=== PATIENT | female | born 1945 | race Caucasian/White ===

== ENCOUNTER 2017-01-30 14:39 | Inpatient (IN) | payer MEDICARE, MEDICAID ==
[~2017-01-30] VITALS: Ht 162.5 cm; Wt 117.9 kg
--- NOTE | ~2017-01-30 | PR ---
[place], [place] PROGRESS NOTE [facility] [id number] UNIT #: [id number] ROOM: 310 DOCTOR: Tahmina SCHWAB,GRAYSON BIRTHDATE: [birth year] DOS: 02/05/2017 PSYCHIATRIC PROGRESS NOTE. SUBJECTIVE: The patient seen and I spoke with the staff. Per staff, the patient is doing better, cooperative, but still has periods of confusion and combativeness. She is taking her medication regularly and easily redirectable. The patient was pleasant and cooperative. She was in the dining area. She said that she is feeling hungry, but did not express any other concerns. She reports good sleep and appetite. She said that she is taking her medication regularly and did not have any side effect. MENTAL STATUS EXAMINATION: The patient was pleasant and cooperative. She was alert. Described her mood as "okay." Affect, mood congruent. Thought process goal directed with confabulation. She denied auditory or visual hallucination. No overt delusions or paranoia noted. She denied suicidal ideation, intent or plan. She also denied homicidal ideation, intent or plan. ASSESSMENT: Dementia with psychosis. PLAN: 1. Continue current medication and care. 2. Continue redirection. 3. Encourage activity and groups. GRAYSON SCHWAB MD CM:LINA [id number] Tahmina SCHWAB 02/05/17 2344 interface
--- NOTE | ~2017-01-30 | PR ---
[place], [place] PROGRESS NOTE NAME: ROMINA LEWIS [facility] #: [id number] UNIT #: [id number] ROOM: 310 DOCTOR: Tahmina SCHWAB,GRAYSON BIRTHDATE: [birth year] DOS: 02/07/2017 SUBJECTIVE: The patient seen and spoke with the staff. Per staff, the patient is doing well. Pleasant and cooperative. No behavioral problems or issues. Medication compliant. The patient was in the day area. She was eating her breakfast. She said that she is feeling better. Reports good sleep and appetite. Denied any side effect from the medication. MENTAL STATUS EXAMINATION: The patient was pleasant, cooperative. She was alert, but not oriented to date, month and year. Speech is normal volume and tone. Described her mood as "okay." Affect, mood congruent. Thought processes with confabulation. Denied auditory or visual hallucination. No delusion or paranoia noted. She denied suicidal ideation, intent or plan. She also denied homicidal ideation, intent or plan. Insight and judgment impaired. ASSESSMENT: Dementia with delusion. PLAN: 1. Continue current medication and care. 2. Continue redirection. 3. Supportive care. GRAYSON SCHWAB MD CM:LINA [id number] Tahmina SCHWAB 02/08/17 0047 interface
--- NOTE | ~2017-01-30 | PR ---
[place], [place] PROGRESS NOTE [id number] UNIT #: [id number] ROOM: 310 DOCTOR: ZEN WIGGINS MD BIRTHDATE: [birth year] DOS: 02/02/2017 CHIEF COMPLAINT: "Hey what is in my tea, can you help me." SUMMARY OF THE VISIT: The patient was interviewed in the breakfast area where she was sitting, eating her breakfast. She stopped and engaged in conversation with me. She reports that she does not feel well, mostly physically, stating she slept well and is anxious for breakfast. She was convinced that there was something in her tea and other than the teabag, I saw nothing else in there. Nurses report overall she has been joking and laughing a little bit more and engaging in more appropriate conversation. She still is forgetful and does repeat herself frequently. MENTAL STATUS: She is alert and oriented to person, place, but not time. Mood does seem to be slightly trending towards euthymia. Affect is more appropriate. There is no mick or hypomania. There are no overt auditory or visual hallucinations. No delusions, no paranoia. Short term memory has gaps, otherwise she is intact. PLAN: I will maximize out the Exelon patch from 9.5-13.3 mg daily to improve or maintain ADLs, behavior and cognition, engage in individual and lal milieu activity, returning to the least restrictive environment when psychiatrically stable. ZEN WIGGINS MD CM:PNTRANS 1316 ZEN WIGGINS MD 02/02/17 1317 interface
--- NOTE | ~2017-01-30 | PR ---
[place], [place] PROGRESS NOTE NAME: ROMINA LEWIS [facility] #: [id number] UNIT #: [id number] ROOM: 310 DOCTOR: Tahmina SCHWAB,GRAYSON BIRTHDATE: [birth year] DOS: 02/11/2017 PSYCHIATRIC PROGRESS NOTE SUBJECTIVE: The patient seen and spoke with the staff. Per staff, the patient is doing well. No behavioral problems or issues. She was a little upset in the morning, but was easily redirectable. She was upset over the breakfast. She is taking her medications and did not have any side effect. Reportedly, she has been sleeping and eating well. The patient was pleasant and cooperative. She was in the day area, interacting with other patients in the unit. She reports doing well. She did not express any concerns. She denied any side effect from the medication. MENTAL STATUS EXAMINATION: The patient was pleasant and cooperative, described her mood as "good." Affect, mood congruent. Thought processes with confabulation. She denied auditory or visual hallucination. There was no delusion or paranoia noted. She denied any suicidal ideation, intent or plan. She also denied any homicidal ideation, intent or plan. ASSESSMENT: Alzheimer dementia with behavioral disturbances. PLAN: 1. Continue current medication and care. 2. Continue to redirect her. 3. Discharge planning. GRAYSON SCHWAB MD CM:PNTRANS [id number] Tahmina SCHWAB 02/12/17 1250 interface
--- NOTE | ~2017-01-30 | PR ---
[place], [place] PROGRESS NOTE NAME: ROMINA LEWIS [facility] #: [id number] UNIT #: [id number] ROOM: 310 DOCTOR: Tahmina SCHWAB,GRAYSON BIRTHDATE: [birth year] DOS: 02/08/2017 SUBJECTIVE: The patient seen and I spoke with the staff. Per staff, the patient is doing well. Much more medication compliant and did not have any side effect. The patient was in the day area. She looks calm and cooperative. She said that she is doing fine. Denied any depressed mood or hopelessness. No overt delusions noted. She reported good sleep and appetite. MENTAL STATUS EXAMINATION: The patient was pleasant, cooperative. Described her mood as "okay." Affect, mood congruent. Thought processes with confabulation. She denied auditory or visual hallucination. No delusion or paranoia noted. She denied any suicidal ideation, intent or plan. She also denied any homicidal ideation, intent or plan. ASSESSMENT: Dementia with delusions. PLAN: 1. Continue current medication and care. 2. Continue redirection. GRAYSON SCHWAB MD CM:LINA 10 3 Tahmina SCHWAB 02/09/17 0144 interface
--- NOTE | ~2017-01-30 | PR ---
[place], [place] PROGRESS NOTE NAME: ROMINA LEWIS [facility] #: [id number] UNIT #: [id number] ROOM: 310 DOCTOR: Tahmina SCHWAB,GRAYSON BIRTHDATE: [birth year] DOS: 02/09/2017 PSYCHIATRIC PROGRESS NOTE SUBJECTIVE: The patient is seen and spoke with the staff. Per staff, the patient is doing well. No behavioral problems or issues. She slept well last night. Took all of her medications. The patient was in the Day Area. She looks bright and happy. She said that she is doing good. She feels happy. She said that medication is helping her. She denied any depressed mood or hopelessness. Denied any other neurologic signs, symptoms or depression. She denied any problems or issues. MENTAL STATUS EXAMINATION: The patient was pleasant and cooperative. She was alert, but not oriented to date, month, or year. Described her mood as "happy." Affect was bright. Thought processes with confabulation. She denied auditory or visual hallucination. No delusion or paranoia noted. She denied suicidal ideation, intent or plan. She also denied homicidal ideation, intent or plan. ASSESSMENT: Dementia with delusion. PLAN: 1. Continue current medication and care. 2. Continue redirection. 3. Discharge planning. GRAYSON SCHWAB MD CM:PNTRANS [id number] Tahmina SCHWAB 02/09/17 1254 interface
--- NOTE | ~2017-01-30 | PR ---
[place], [place] PROGRESS NOTE [facility] [id number] UNIT #: [id number] ROOM: 310 DOCTOR: ZEN WIGGINS MD BIRTHDATE: [birth year] DOS: 02/03/2017 CHIEF COMPLAINT: "Good morning." SUMMARY OF THE VISIT: The patient was interviewed in the dining area where she was sitting near female peers, having completed her breakfast. She engaged in short simple conversation. She was much more pleasant and yesterday, smiled upon approach and even joked a little bit with me. There was no agitation or aggression. There was no mood lability. There is no sedation, somnolence, or any other type of side effects noted. MENTAL STATUS: She is alert and oriented to person, place, but not time. Mood does seem to be trending towards euthymia. Affect is more appropriate. There are no symptoms of mick or hypomania. There is no overt auditory or visual hallucinations. No delusions, no paranoia present at this time. PLAN: I will maintain her current psychotropic regimen, engage her in individual and lal milieu activity, returning her to the least restrictive environment when psychiatrically stable. ZEN WIGGINS MD CM:PNTRANS 8 ZEN WIGGINS MD 02/03/1729 interface
--- NOTE | ~2017-01-30 | PR ---
[place], [place] PROGRESS NOTE NAME: ROMINA LEWIS [facility] #: [id number] UNIT #: [id number] ROOM: 310 DOCTOR: Tahmina SCHWAB,GRAYSON BIRTHDATE: [birth year] DOS: 02/06/2017 The patient seen and spoke with the staff. Per staff, the patient is doing good, med compliant. No behavioral problems or issues. No side effects from the medication. The patient was pleasant, cooperative. She was in the day area on the chair. When I went to her, she said that she was doing okay, but did not continue talking with me. She denied being depressed or sad. She does not seem to be in any distress. MENTAL STATUS EXAMINATION: The patient was pleasant, cooperative. She was alert, not oriented to place and person. Described her mood as "okay." Affect flat. Thought processes with confabulation. Denied auditory or visual hallucination. No overt delusional paranoia noted. Denied suicidal ideation, intent or plan. She also denied any homicidal ideation, intent or plan. Insight and judgment impaired. ASSESSMENT: Dementia with delusion. PLAN: 1. Continue current medications and care. 2. Continue redirection. 3. Supportive care. GRAYSON SCHWAB MD CM:PNTRANS [phone] Tahmina SCHWAB 02/07/17 0141 interface
--- NOTE | ~2017-01-30 | PR ---
[place], [place] PROGRESS NOTE NAME: ROMINA LEWIS [facility] #: [id number] UNIT #: [id number] ROOM: 310 DOCTOR: Tahmina SCHWAB,GRAYSON BIRTHDATE: [birth year] DOS: 02/10/2017 PSYCHIATRIC PROGRESS NOTE SUBJECTIVE: The patient seen and spoke with the staff. Per staff, the patient is doing well. No behavioral problems or issues. Med compliant. Sleeping and eating good. The patient was pleasant, cooperative. She was watching a movie. She reports doing "good." She feels that the medication is helping her. She denied any side effect from the medication. She denied depressed mood or hopelessness. Denied any psychotic or manic symptoms. MENTAL STATUS EXAMINATION: Pleasant, cooperative, described her mood as "good." Affect bright. Thought process is with confabulation. She denied auditory or visual hallucination. No delusion or paranoia noted. She denied suicidal ideation, intent or plan. She also denied homicidal ideation, intent or plan. Insight and judgment impaired. ASSESSMENT: Dementia with delusion. PLAN: 1. Continue current medication and care. 2. Continue redirection. 3. Discharge planning. GRAYSON SCHWAB MD CM:LINA [id number] Tahmina SCHWAB 02/11/17 0342 interface
--- NOTE | ~2017-01-30 | DS ---
[place], [place] DISCHARGE SUMMARY NAME: ROMINA LEWIS [facility] #: [id number] UNIT #: [id number] ROOM: 310 DOCTOR: Tahmina SCHWAB,GRAYSON BIRTHDATE: [birth year] DOS: 02/12/2017 HISTORY OF PRESENT ILLNESS: Please copy the history of present illness, past psychiatric history, past medical history, social history, substance abuse history, admission mental status examination, admission diagnosis from the psychiatric admission H and P. HOSPITAL COURSE: The patient got admitted for stabilization. She was started on medication, which she tolerated well with significant improvement of her mood and symptoms. The patient was on Risperdal 0.5 mg twice a day. She was also on memantine and Exelon patch. During the next couple of days, the patient improved significantly. She was sleeping well. Her appetite was good. No behavioral problems or issues. She was seen by the treatment team regularly and continuous redirection was provided to the patient also. The treatment team felt that the patient got maximum benefit out of this acute hospitalization and can be discharged back to the long-term. ASSESSMENT: Alzheimer dementia with psychosis. DISCHARGE MEDICATIONS: Include Risperdal 0.5 mg q. 12 hours, Namenda 10 mg twice a day and Exelon patch. INSTRUCTIONS AND FOLLOWUP APPOINTMENT: 1. The patient was advised to take her medication regularly. 2. The patient was advised to go for followup regularly. GRAYSON SCHWAB MD CM:RAY 0909 [id number] Tahmina SCHWAB 02/12/17 1320 interface
[2017-01-30] MEDS ORDERED: CRESTOR10 M1 PO ×2 (15:53→16:17)
[2017-01-30] MEDS ORDERED: LISINOPRIL20 MG PO (15:58)
[2017-01-30] MEDS ORDERED: GLUCOPHAGE500 M1 PO (15:59)
[2017-01-30] MEDS ORDERED: 'TENORMIN50 MG PO (16:00)
[2017-01-30] MEDS ORDERED: IMDUR SA60 M1 PO (16:02)
[2017-01-30] MEDS ORDERED: BUSPAR5 MG PO (16:13)
[2017-01-30] MEDS ORDERED: LEVEMIR10 ML SC (16:14)
[2017-01-30] MEDS ORDERED: MONTELUKAST SOD10 MG PO (16:15)
[2017-01-30] MEDS ORDERED: NAMZARIC 28 MG1 EACH PO (16:16)
[2017-01-30] MEDS ORDERED: REMEDY ANTIFUNG85 GM T (16:19)
[2017-01-30] MEDS ORDERED: CITALOPRAM20 MG PO (16:21)
[2017-01-30] MEDS ORDERED: CLOPIDOGREL75 MG PO (16:22)
[2017-01-30] MEDS ORDERED: HYDR25T PO (16:23)
[2017-01-30] MEDS ORDERED: TOPAMAX25 M3 PO (16:23)
[2017-01-30] MEDS ORDERED: NOVOLOG MI100 UNIT/2 SQ (16:25)
[2017-01-30] MEDS ORDERED: ENEMA BOTTLE1 EACH MC (16:28)
[2017-01-30] MEDS ORDERED: BISAC-EVAC10 MG R (16:29)
[2017-01-30] MEDS ORDERED: TYLENOL325 M1 PO (16:30)
[2017-01-30] MEDS ORDERED: ANTI-DIARRHEA2 MG PO (16:30)
[2017-01-30] MEDS ORDERED: MOM30 M1 PO (16:31)
[2017-01-30] MEDS ORDERED: PROCTOSOL-HC2.51 R (16:32)
[2017-01-30] MEDS ORDERED: MUCINEX ER600 MG PO (16:32)
[2017-01-30] MEDS ORDERED: NITROSTAT0.4 MG SL (16:33)
[2017-01-30 17:00] VITALS: BP 140/79
[2017-01-30] MEDS ORDERED: ARICEPT10 M1 PO (18:52)
[2017-01-30] MEDS ORDERED: VICTOZA6 MG/ML SQ (20:03)
[2017-01-30 20:09] VITALS: BP 129/64
[2017-01-30 23:54] LABS: BILIRUBIN NEGATIVE (NEGATIVE); BLOOD 3+ (NEGATIVE); CLARITY CLEAR (CLEAR); COLOR YELLOW (YELLOW); GLUCOSE NEGATIVE (NEGATIVE); KETONE NEGATIVE (NEGATIVE); LEUKO ESTERASE TRACE (NEGATIVE); NITRITE NEGATIVE (NEGATIVE); PH 6.5 (5.0-9.0); PROTEIN NEGATIVE (NEGATIVE)
[2017-01-30 23:59] LABS: URINE REFLEX COMMENT YES (NO)
[2017-01-31] LABS: BACTERIA TRACE
[2017-01-31 00:01] LABS: RBC 51-100 rbc/hpf (0-2)
[2017-01-31 08:00] VITALS: BP 128/62
[2017-01-31 08:10] LABS: BASO # 0.1 10*3/uL (0.0-0.1); BASO % 0.5 % (0.0-1.0); EOS # 0.6 10*3/uL (0.0-0.4); EOS % 4.8 % (1.0-4.0); HEMATOCRIT 40.1 % (37.0-47.0); HEMOGLOBIN 12.3 g/dl (12.0-16.0); IG # 0.1 10*3/uL (0.0-0.1); LYMPH # 2.6 10*3/uL (1.3-4.4); LYMPH % 22.4 % (27.0-41.0); MEAN CELL VOLUME 83.2 fl (81.0-99.0); MEAN CORPUSCULAR HGB 25.5 pg (27.0-31.0); MEAN CORPUSCULAR HGB CONC 30.7 g/dl (33.0-37.0); MEAN PLATELET VOLUME 12.6 fl (9.6-12.3); MONO # 0.6 10*3/uL (0.1-1.0); MONO % 5.1 % (3.0-9.0); NEUT # 7.6 10*3/uL (2.3-7.9); NEUT % 66.6 % (47.0-73.0); PLATELET COUNT AUTOMATED 294 10*3/uL (130-400); RED BLOOD COUNT 4.82 10*6/uL (4.10-5.10); RED CELL DISTRI WIDTH 16.5 % (0-14.5); WHITE BLOOD COUNT 11.5 10*3/uL (4.8-10.8)
[2017-01-31 08:37] LABS: ALBUMIN 2.5 gm/dl (3.1-4.5); BILIRUBIN, TOTAL 0.4 mg/dl (0.2-1.0); TOTAL PROTEIN 7.6 gm/dL (6.4-8.2)
[2017-01-31 08:39] LABS: HEMOGLOBIN A1c 7.1 % (4.8-5.6)
[2017-01-31 08:45] LABS: THYROID STIM HORMONE (HS) 5.38 uIU/ml (0.358-4.75)
[2017-01-31 09:01] LABS: FOLIC ACID 6.62 ng/mL (>5.38)
[2017-01-31 14:17] LABS: BILIRUBIN NEGATIVE (NEGATIVE); BLOOD 3+ (NEGATIVE); CLARITY CLOUDY (CLEAR); COLOR YELLOW (YELLOW); GLUCOSE NEGATIVE (NEGATIVE); KETONE NEGATIVE (NEGATIVE); LEUKO ESTERASE 2+ (NEGATIVE); NITRITE NEGATIVE (NEGATIVE); PROTEIN 1+ (NEGATIVE)
[2017-01-31 15:27] LABS: BACTERIA 3+; EPITHELIAL CELLS 20-25; RBC TNTC rbc/hpf (0-2); URINE REFLEX COMMENT YES (NO); WBC TNTC wbc/hpf (0-5)
[2017-01-31 20:15] VITALS: BP 118/68
[2017-02-01 07:24] LABS: BASO # 0.1 10*3/uL (0.0-0.1); BASO % 0.6 % (0.0-1.0); EOS # 0.4 10*3/uL (0.0-0.4); EOS % 3.6 % (1.0-4.0); HEMATOCRIT 40.1 % (37.0-47.0); HEMOGLOBIN 12.4 g/dl (12.0-16.0); IG # 0.1 10*3/uL (0.0-0.1); LYMPH # 2.8 10*3/uL (1.3-4.4); LYMPH % 24.6 % (27.0-41.0); MEAN CELL VOLUME 82.3 fl (81.0-99.0); MEAN CORPUSCULAR HGB 25.5 pg (27.0-31.0); MEAN CORPUSCULAR HGB CONC 30.9 g/dl (33.0-37.0); MEAN PLATELET VOLUME 12.3 fl (9.6-12.3); MONO # 0.6 10*3/uL (0.1-1.0); MONO % 5.4 % (3.0-9.0); NEUT # 7.3 10*3/uL (2.3-7.9); NEUT % 65.4 % (47.0-73.0); PLATELET COUNT AUTOMATED 287 10*3/uL (130-400); RED BLOOD COUNT 4.87 10*6/uL (4.10-5.10); RED CELL DISTRI WIDTH 16.4 % (0-14.5); WHITE BLOOD COUNT 11.2 10*3/uL (4.8-10.8)
[2017-02-01 07:32] LABS: POTASSIUM 3.8 mmol/L (3.5-5.1)
[2017-02-01 08:00] VITALS: BP 113/77
[2017-02-01 20:16] VITALS: BP 116/72
[2017-02-02 08:15] VITALS: BP 132/63
[2017-02-02 20:00] VITALS: BP 109/73
[2017-02-03 07:55] VITALS: BP 102/48
[2017-02-03 08:01] VITALS: BP 118/68
[2017-02-03 20:02] VITALS: BP 118/45
[2017-02-04 08:11] VITALS: BP 118/68
[2017-02-04 20:00] VITALS: BP 110/70
[2017-02-05 08:01] VITALS: BP 115/72
[2017-02-05 20:09] VITALS: BP 108/66
[2017-02-06 08:08] VITALS: BP 124/90
[2017-02-06 20:00] VITALS: BP 110/60
[2017-02-07 08:00] VITALS: BP 119/62
[2017-02-07 20:05] VITALS: BP 124/75
[2017-02-08 07:47] VITALS: BP 113/46
[2017-02-08 20:00] VITALS: BP 155/65
[2017-02-09 08:33] VITALS: BP 110/59
[2017-02-09 20:00] VITALS: BP 110/60
[2017-02-10 08:36] VITALS: BP 100/53
[2017-02-10 20:16] VITALS: BP 118/56
[2017-02-11 10:09] VITALS: BP 124/71
[2017-02-11 20:00] VITALS: BP 110/60
[2017-02-12 08:01] VITALS: BP 112/57
[2017-02-12] MEDS ORDERED: MEMANTINE HCL10 MG PO (10:57)
[2017-02-12] MEDS ORDERED: EXELON13.3 MG/21 T (10:57)
[2017-02-12] MEDS ORDERED: RISPERIDONE0.5 MG PO (10:57)
[2017-02-12] MEDS ORDERED: LOSARTAN POTAS100 M1 PO (11:05)
== END 2017-02-12 15:57 | disposition other institution (70) | DRG 57 ==
LOC: 3N 14:39
PROVIDERS: Internal Medicine Hospice and Palliative Medicine; Psychiatry & Neurology Psychiatry
DX: G30.9 Alzheimer's disease, unspecified (principal); I11.0 Hypertensive heart disease with heart failure; I50.32 Chronic diastolic (congestive) heart failure; F02.81 Dementia in other diseases classified elsewhere, unspecified severity, with behavioral disturbance; F23 Brief psychotic disorder; F33.1 Major depressive disorder, recurrent, moderate; N30.00 Acute cystitis without hematuria; R47.01 Aphasia; E11.65 Type 2 diabetes mellitus with hyperglycemia; I25.10 Atherosclerotic heart disease of native coronary artery without angina pectoris; E78.5 Hyperlipidemia, unspecified; E03.9 Hypothyroidism, unspecified; J45.30 Mild persistent asthma, uncomplicated; Z86.73 Personal history of transient ischemic attack (TIA), and cerebral infarction without residual deficits; I25.2 Old myocardial infarction; Z95.810 Presence of automatic (implantable) cardiac defibrillator; Z79.899 Other long term (current) drug therapy; Z88.8 Allergy status to other drugs, medicaments and biological substances; Z91.041 Radiographic dye allergy status; Z88.0 Allergy status to penicillin; Z88.6 Allergy status to analgesic agent; Z91.018 Allergy to other foods